=== PATIENT | female | born 1985 | race Caucasian/White ===

== ENCOUNTER 2020-09-18 22:39 | Emergency (ER) | payer BC ==
[~2020-09-18] VITALS: Ht 158.8 cm; Wt 81.8 kg
[~2020-09-18 22:39] MED LIST: HYDROCODONE-APA1 TAB PO; MOTRIN600 MG PO; PRENATAL COMPLE1 TAB PO; SUBOXONE 2 MG-01 TAB SL
[2020-09-18 22:57] VITALS: Ht 158.8 cm; Wt 81.8 kg
[2020-09-18] MEDS ORDERED: ZOLOFT50 MG PO (23:00)
[2020-09-18 23:34] LABS: HEMATOCRIT 42.2 % (36.0-48.0); HEMOGLOBIN 14.4 g/dL (12-16); LYMPHOCYTES 26.4 % (15-50); MCH 31.4 pg (26.0-34.0); MCHC 34.1 g/dL (31.0-37.0); MCV 91.9 fL (80.0-100.0); MEAN PLATELET VOLUME 10.5 fL (7.4-10.4); NEUTROPHILS 65.7 % (40-80); PLATELET COUNT 221 10x3/uL (130-400); RBC 4.59 10x6/uL (4.00-5.40); RDW 12.8 % (11.5-14.5); WBC 9.5 10x3/uL (4.8-10.8)
[2020-09-18 23:38] LABS: CALC OSMOLALITY 270 mosm/kg (275-300); CARBON DIOXIDE 24.1 mmol/L (21.0-32.0); CHLORIDE - SERUM 99 mmol/L (98-107); CREATININE - SERUM 0.7 mg/dL (0.6-1.3); GLUCOSE 89 mg/dL (74-106); POTASSIUM - SERUM 3.2 mmol/L (3.5-5.1); SODIUM 137 mmol/L (136-145); UREA NITROGEN 8 mg/dL (7-18); eGFR NON AFRICAN AMERICAN > 90 mL/min (90-120)
[2020-09-18 23:44] LABS: ALBUMIN 4.1 g/dL (3.4-5.0); ALKALINE PHOSPHATASE 106 U/L (30-120); ALT (SGPT) 31 U/L (10-68); BILIRUBIN - TOTAL 0.42 mg/dL (0.2-1.3); PROTEIN - SERUM 7.9 g/dL (6.4-8.2)
[2020-09-19] MEDS ORDERED: AUGMENTIN 875-11 TAB PO (00:13)
[2020-09-19] MEDS ORDERED: ORAL ANALGESIC9 GM TOPICAL (00:13)
[2020-09-19] MEDS ORDERED: DICLOFENAC SODI50 MG PO (00:13)
[2020-09-19] MEDS ORDERED: CLEOCIN HCL300 MG PO (00:13)
[2020-09-19 00:58] VITALS: BP 117/71
== END 2020-09-19 00:58 | disposition home or self-care (01) ==
LOC: D.ER 22:39
PROVIDERS: Family Medicine
DX: K04.7 Periapical abscess without sinus (principal); E87.6 Hypokalemia